=== PATIENT | female | born 1945 | race Hispanic/Latino ===

== ENCOUNTER 2018-03-29 05:38 | Day surgery (SDC) | payer MEDICARE ==
[~2018-03-29] VITALS: Ht 162.6 cm; Wt 79.7 kg
[~2018-03-29 05:38] MED LIST: ALPR0.255 PO; ASPI-1197 PO; CETI10TA57 PO; CLON0.1T PO; LOSA1TAB54 PO; OMEP40CA37 PO; SIMV20TA6 PO
[2018-03-29] MEDS ORDERED: SODIUM CHLORIDE 0.9% 1000ML 1,000 ML IV ONE (05:41)
[2018-03-29 06:31] VITALS: BP 155/68
[2018-03-29] MEDS ORDERED: PROPOFOL 10 MG/ML 20ML VIAL IV ONE ×2 (07:09)
[2018-03-29] MEDS ORDERED: SIMETHICONE 40 MG/0.6 ML ML ONE (07:15)
[2018-03-29] MEDS ORDERED: LEVOFLOXACIN 500 MG/D5W 100 ML 100 ML ONE (07:25)
[2018-03-29 07:36] VITALS: BP 122/65
== END 2018-03-29 08:08 | disposition home or self-care (01) ==
LOC: DAH 05:38
PROVIDERS: ATTEND Internal Medicine
DX: K83.8 Other specified diseases of biliary tract (principal); K86.2 Cyst of pancreas; K31.89 Other diseases of stomach and duodenum; I10 Essential (primary) hypertension; E78.5 Hyperlipidemia, unspecified; K21.9 Gastro-esophageal reflux disease without esophagitis; Z90.710 Acquired absence of both cervix and uterus; Z90.721 Acquired absence of ovaries, unilateral; Z88.8 Allergy status to other drugs, medicaments and biological substances; Z79.899 Other long term (current) drug therapy; Z79.82 Long term (current) use of aspirin
CPT/HCPCS: 43238; 82378; 88108; 93005; A4215; A4606; J1956; J2704 ×2; J7030; 36415; 43232